=== PATIENT | female | born 1995 | race Caucasian/White ===

== ENCOUNTER → 2018-01-16 10:25 | Outpatient (CLI) | payer MEDICAID, SELFPAY ==
[2018-01-16 16:30] LABS: Chlamydia Trachomatis by PCR Negative (Negative); Neisserai gonorrhoeae by PCR Negative (Negative); Probe Check PASS; Sample Adequacy Control PASS; Specimen Processing Control PASS
== END ==
PROVIDERS: Visit Provider Obstetrics & Gynecology
DX: Z11.3 Encounter for screening for infections with a predominantly sexual mode of transmission (principal)
CPT/HCPCS: 87491; 87591

== ENCOUNTER → 2018-01-18 14:10 | Outpatient (CLI) | payer MEDICAID, SELFPAY ==
--- NOTE | 2018-01-18 14:16 | US_ITS ---
STUDY: ULTRASOUND BREAST - LEFT REASON FOR EXAM: Female, 22 years old. Follow-up for left retroareolar lump. TECHNIQUE: Axial and longitudinal images of the LEFT breast were performed with a high resolution ultrasound transducer. COMPARISON: June 06, 2017. This exam demonstrated a probably benign lactocele measuring 1.1 cm in maximum dimension immediately adjacent to the left nipple. FINDINGS: LEFT Breast: There is no sonographically evident nodule, mass, cyst or fluid collection. Incidental note is made of multiple mildly dilated ducts. US/Breast Limited Unilateral IMPRESSION: No evident nodule, mass, cyst or fluid collection. Multiple mildly dilated ducts. ASSESSMENT CATEGORY: BIRADS Category 2: Benign. A letter regarding these results will be sent to the patient by the facility within 30 days. Electronically Signed: Marin Lew MD at 15:31 EDT , Service support ,
== END ==
PROVIDERS: Visit Provider Obstetrics & Gynecology
DX: N63.20 Unspecified lump in the left breast, unspecified quadrant (principal)
CPT/HCPCS: 76642

== ENCOUNTER → 2018-02-13 14:12 | Outpatient (CLI) | payer MEDICAID, SELFPAY ==
[2018-02-13 15:52] LABS: Color, Urine Yellow (Yellow); Glucose, Dipstick Normal (Normal); Ketone-Dipstick Negative (Negative); Leukocyte Esterase-Dipstick 100 /ul (Negative); Nitrite-Dipstick Negative (Negative); Occult Blood-Urine Negative /ul (Negative); Protein-Dipstick 15 mg/dl (Negative); Urine Bilirubin Dipstick Negative (Negative); Urine Clarity Cloudy (Clear); Urine Urobilinogen 4 mg/dl (Normal); Urine pH 6.5 (5.0 - 8.0)
[2018-02-13 16:19] LABS: Absolute Lymphocyte Count 1.52 X10^3/ul (0.83-4.51); Absolute Neutrophil Count 5.1 X10^3/uL (2.0-7.7); Basophil# 0.02 X10^3/uL; Basophil% 0.3 % (0-1); Eosinophil# 0.11 X10^3/uL; Eosinophils% 1.5 % (0-5); Hematocrit 36.5 % (37-47); Hemoglobin 12.7 g/dl (12.0-15.0); Lymphocyte # 1.52 X10^3/ul (4.0); Lymphocyte % 21.1 % (19-41); Mean Corp Hgb Conc 34.8 g/gl (32-36); Mean Corpuscular Volume 86.1 fL (81-99); Mean Platelet Vol. 11.3 fl (6.2-12.0); Monocyte# 0.43 X10^3/uL; Neutrophil # 5.12 X10^3/uL (2.7-7.7); Platelet Count 142 K/mm3 (150-450); RBC Distribution Width CV 12.9 % (11.6-14.6); RBC Distribution Width SD 39.8 fl (35.1-43.9); Red Blood Count 4.24 M/mm3 (4.2-5.4); White Blood Count 7.2 K/mm3 (4.4-11.0)
[2018-02-13 16:21] LABS: POSITIVE COUNT NO; POSITIVE DIFFERENTIAL NO; POSITIVE MORPHOLOGY NO
[2018-02-13 16:23] LABS: Thyroid Stim Hormone (TSH) 0.43 uIU/mL (0.358-3.74)
[2018-02-13 16:25] LABS: Amphetamine Urine VISTA NEGATIVE (<1000 ng/mL); Barbiturate Urine VISTA NEGATIVE (< 200 ng/mL); Benzodiazepine Urine VISTA NEGATIVE (< 200 ng/mL); Cocaine Urine VISTA NEGATIVE (< 300 ng/mL); Ecstacy Urine VISTA NEGATIVE (< 500 ng/mL); Methadone Urine VISTA NEGATIVE (< 300 ng/mL); PCP Urine VISTA NEGATIVE (< 25 ng/mL); THC Urine VISTA NEGATIVE (< 50 ng/mL); Vista UDS pH Range 6
[2018-02-13 17:07] LABS: HIV - WCH Non-Reactive (Nonreactive); Rubella IgG 23.4 IU/mL
[2018-02-15 10:17] LABS: HEPATITIS B SURFACE AG Negative (Negative); Hep C Antibodies <0.1 s/co ratio (0.0-0.9)
[2018-02-17 01:20] LABS: Prenatal RPR NONREACTIVE (NONREACTIVE)
== END ==
PROVIDERS: Visit Provider Obstetrics & Gynecology
DX: Z34.81 Encounter for supervision of other normal pregnancy, first trimester (principal)
CPT/HCPCS: 36415; 80307; 81002; 84443; 85025; 86703; 86762; 86803; 87340

== ENCOUNTER → 2018-03-13 17:08 | Outpatient (CLI) | payer MEDICAID, SELFPAY | PROVIDERS: Visit Provider Obstetrics & Gynecology | DX: N39.0 Urinary tract infection, site not specified (principal) | CPT/HCPCS: 87086; 87088 ==

== ENCOUNTER → 2018-05-22 15:55 | Outpatient (CLI) | payer MEDICAID, SELFPAY | PROVIDERS: Visit Provider Obstetrics & Gynecology | DX: K62.89 Other specified diseases of anus and rectum (principal); N89.8 Other specified noninflammatory disorders of vagina | CPT/HCPCS: 87070; 87075; 87077; 87205 ==

== ENCOUNTER → 2018-05-30 08:21 | Outpatient (CLI) | payer MEDICAID, SELFPAY ==
[2018-05-30 15:51] LABS: Hematocrit 33.3 % (37-47); Hemoglobin 11.1 g/dl (12.0-15.0); Mean Corp Hgb Conc 33.3 g/gl (32-36); Mean Corpuscular Hgb 30.4 pg (27.0-32.0); Mean Corpuscular Volume 91.2 fL (81-99); Mean Platelet Vol. 10.8 fl (6.2-12.0); Platelet Count 176 K/mm3 (150-450); RBC Distribution Width CV 12.7 % (11.6-14.6); RBC Distribution Width SD 42.3 fl (35.1-43.9); Red Blood Count 3.65 M/mm3 (4.2-5.4); Scan Indicated on CBC? Y/N NO; White Blood Count 9.5 K/mm3 (4.4-11.0)
[2018-05-30 16:01] LABS: Glucose Challenge Gest 1H 50g 97 mg/dL (70-140)
== END ==
PROVIDERS: Visit Provider Obstetrics & Gynecology
DX: Z34.83 Encounter for supervision of other normal pregnancy, third trimester (principal)
CPT/HCPCS: 36415; 82950; 85027

== ENCOUNTER → 2018-06-27 14:52 | Outpatient (CLI) | payer MEDICAID, SELFPAY ==
[2018-06-27 20:57] LABS: Chlamydia Trachomatis by PCR Negative (Negative); Neisserai gonorrhoeae by PCR Negative (Negative); Probe Check PASS; Sample Adequacy Control PASS; Specimen Processing Control PASS
== END ==
PROVIDERS: Visit Provider Obstetrics & Gynecology
DX: Z86.19 Personal history of other infectious and parasitic diseases (principal)
CPT/HCPCS: 87491; 87591

== ENCOUNTER → 2018-07-25 15:48 | Outpatient (CLI) | payer MEDICAID, SELFPAY ==
[2018-07-25 20:40] LABS: Group B Strep DNA By PCR Negative (Negative); Internal Control PASS; Probe Check PASS; Specimen Processing Control PASS
== END ==
PROVIDERS: Visit Provider Obstetrics & Gynecology
DX: Z36.85 Encounter for antenatal screening for Streptococcus B (principal)
CPT/HCPCS: 87081; 87653

== ENCOUNTER 2018-08-03 17:45 | Inpatient (IN) | payer MEDICAID, SELFPAY ==
[2018-08-03] MEDS: Lactated Ringers 1,000 ML 50 ML IV ×2 (18:00→19:30)
[2018-08-03 18:11] VITALS: BMI 27.1
[2018-08-03 18:36] LABS: Hematocrit 35.2 % (37-47); Hemoglobin 11.6 g/dl (12.0-15.0); Mean Corpuscular Hgb 28.8 pg (27.0-32.0); Mean Corpuscular Volume 87.3 fL (81-99); Mean Platelet Vol. 10.2 fl (6.2-12.0); Platelet Count 150 K/mm3 (150-450); RBC Distribution Width CV 12.6 % (11.6-14.6); RBC Distribution Width SD 40.4 fl (35.1-43.9); Red Blood Count 4.03 M/mm3 (4.2-5.4); White Blood Count 12.7 K/mm3 (4.4-11.0)
[2018-08-03] MEDS: Ondansetron 4 MG/2 ML Vial IV (18:48)
[2018-08-03 18:50] LABS: Scan Indicated on CBC? Y/N NO
[2018-08-03] MEDS: Oxytocin 30 units/NS 500 ml 30 UNITS/500 ML IV.SOLN 334 UNITS IV (20:16)
[2018-08-03] MEDS: Methylergonovine 0.2 MG/ML Ampul IM (20:18)
--- NOTE | 2018-08-03 20:26 | PCM.OB.VAG ---
- Problem List (1) 37 weeks gestation of Status: Acute (2) (spontaneous vaginal delivery) Status: Acute Vaginal Delivery Maternal Presentation: Active Labor Amniotic Membrane Rupture Type: Spontaneous Rupture of Membrane time: 08/03/20181999 Amniotic Fluid Description: Clear Final ROSA: 08/20/18 Final ROSA Source: US <20 weeks Gestational age: 37 Weeks and 4 Days Date of Procedure: 08/03/18 Pre-Operative Diagnosis: 37 4/7wga, labor Post-Operative Diagnosis: 37 4/7wga, labor Surgery/ Procedure Performed: Spontaneous Vaginal Delivery Anesthesiologist: Antonio Garcia Type of Anesthesia: Epidural Description of Procedure: Patient was FD/+4 station on my arrival. She pushed to deliver a vigorous male infant over an intact perineum. The infant was placed on the maternal abdomen and further attended by nursery personnel. The cord was doubly clamped and cut after it stopped pulsating. Cord blood specimen was obtained. The placenta delivered spontaneously and appeared intact on inspection. Perineum intact Sponge counts correct x 2. Presentation: Vertex Placental Delivery Description: Spontaneous Placenta Disposition: [facility] Cord Vessel Description: 3 Vessels Nuchal Cord Compression: Without compression Cord Entanglement: None Estimated Blood Loss: 200 ml Infant A gender: Male (1 minute): 8 (5 minute): 9 Episiotomy Description: None Laceration: None Medications given after delivery: IV Pitocin Complications: None
--- NOTE | 2018-08-03 20:34 | DCINST_ITS ---
Discharge Diet: No Restrictions Discharge Activity: Return to Normal Activity May resume sexual activity in: 6 weeks Lifting Restrictions: 20 lb Call your doctor if you observe: Fever of 101 or Higher, Inability to urinate, Inability to have a bowel movement, Using more than one pad per hour, Shortness of breath, Chest pain, Calf discomfort, Uncontrolled pain Additional Instructions: If you experience any of the following, contact your healthcare provider. * Bleeding that soaks a pad every hour for 2 hours * Fever 100.4 or higher * Unrelieved incision or abdominal pain * Swelling, redness, discharge or bleeding from your incision or episiotomy site * Your incision begins to separate * Problems urinating (including inability to urinate or burning while urinating). * Visual changes * Severe headache * Flu-like symptoms * Pain or redness in one of both of your breasts * Pain, warmth, tenderness or swelling in your legs, especially the calf area * Frequent nausea and vomiting * Symptoms of depression or anxiety If you experience any of the following, call 911 or go to the nearest Emergency Room. * Chest pain * Problems breathing * Seizure activity * Partial or complete paralysis of a body part, slurred speech, weakness or drooping of the face, or a sudden inability to walk or hold your balance Allergies/Adverse Reactions: Allergies No Known Allergies Allergy (Verified 12/05/15 10:12) Medications to take at Discharge Docusate Sodium [Colace] 100 mg PO BID PRN PRN #60 capsule 08/03/18 Ibuprofen 600 mg PO TID PRN #30 tablet 08/03/18 The following prescriptions were given: Docusate Sodium [Colace] 100 mg PO BID PRN PRN #60 capsule PRN Reason: Constipation Ibuprofen 600 mg PO TID PRN #30 tablet PRN Reason: Pain Please Follow Up With: Racheal Sloan MD When: 6 weeks Primary Care Physician: Care Physician,No Primary [Primary Care Provider] - Test Results: Test results from this visit will be discussed in further detail at your follow- up appointment, if applicable.
[2018-08-03] MEDS: Oxytocin 30 units/NS 500 ml 30 UNITS/500 ML IV.SOLN 167 UNITS IV (20:46)
[2018-08-03] MEDS: Ibuprofen 600 MG Tablet PO (21:50)
[2018-08-03] MEDS: 0.9% Saline Lock 10 ML Syringe IV (22:01)
[2018-08-03 22:22] VITALS: BP 118/71; PULSE 88; RESP 16; TEMP 36.9
[2018-08-04 00:28] VITALS: BP 112/44; PULSE 85; RESP 16; TEMP 36.8
--- NOTE | 2018-08-04 00:37 | NURSING ---
Late entry: at 2230, pt up to the bathroom with myself and Alana JAUREGUI. Pt tolerated activity well, unable to void. Pt performed phoenix care, then to wheelchair to be transported to room.
--- NOTE | 2018-08-04 00:39 | NURSING ---
Patient up to bathroom to try to void. Pt performed phoenix care; tolerated activity well. While in room, patient reported to this RN that boyfriend (Uche) went and got pt taco tapia to eat. Pt stated that she really wanted KF but he (indicating Uche) isn't really supposed to be driving, only for emergencies. Pt did not explain any further.
[2018-08-04 04:30] VITALS: BP 130/56; PULSE 93; RESP 16; TEMP 36.6; O2SAT 99
[2018-08-04 08:00] VITALS: BP 109/67; PULSE 80; RESP 16; TEMP 36.9
--- NOTE | 2018-08-04 08:46 | PCM.PN.OB ---
Patient Problems: Active and Suspected Problems 37 weeks gestation of (Acute) (spontaneous vaginal delivery) (Acute) Subjective: Patient without complaints. Minimal vaginal bleeding reported. Plans to bottlefeed. - Physical Exam Vital Signs Temp Pulse Resp BP Pulse Ox 97.8 F 93 16 130/56 H 99 08/04/18 04:30 08/04/18 04:30 08/04/18 04:30 08/04/18 04:30 08/04/18 04:30 Oxygen Delivery Method Room Air Weight: 134 lb 7.712 oz Body Mass Index (BMI) 27.1 Intake and Output for Last 24 Hours 08/02/18 08/03/18 08/04/18 23:59 23:59 23:59 Intake Total 1569 / 1569 Output Total 200 / 200 Balance 1369 / 1369 Laboratory Tests Past 24 Hrs 08/03/18 08/03/18 18:12 18:12 WBC 12.7 H RBC 4.03 L Hgb 11.6 L Hct 35.2 L MCV 87.3 MCH 28.8 MCHC 33.0 RDW 12.6 RDW Differential 40.4 Plt Count 150 MPV 10.2 Blood Type O POSITIVE Antibody Screen NEGATIVE Medical Necessity - Tobacco Use Smoking Status: Heavy Smoker (>10/day) Assessment/Plan All Active Problems 37 weeks gestation of (Acute) (spontaneous vaginal delivery) (Acute) Vacuum extractor delivery, delivered (Acute) Oligohydramnios (Acute) 39 weeks gestation of (Acute) Doing well day #1. Continuing present care.
[2018-08-04 12:00] VITALS: BP 110/68; PULSE 78; RESP 16; TEMP 36.3
[2018-08-04 16:00] VITALS: BP 114/74; PULSE 88; RESP 16; TEMP 36.4
[2018-08-04 20:15] VITALS: BP 109/58; PULSE 83; RESP 16; TEMP 36.3; O2SAT 98
[2018-08-05 01:40] VITALS: BP 108/52; PULSE 76; RESP 16; TEMP 36.5; O2SAT 97
[2018-08-05 08:00] VITALS: BP 112/68; PULSE 71; RESP 16; TEMP 36.3
--- NOTE | 2018-08-05 10:17 | PCM.PN.OB ---
Patient Problems: Active and Suspected Problems 37 weeks gestation of (Acute) (spontaneous vaginal delivery) (Acute) Subjective: Patient without complaints. Denies any problems. Minimal vaginal bleeding. - Physical Exam Vital Signs Temp Pulse Resp BP Pulse Ox 97.7 F L 76 16 108/52 L 97 08/05/18 01:40 08/05/18 01:40 08/05/18 01:40 08/05/18 01:40 08/05/18 01:40 Oxygen Delivery Method Room Air Weight: 134 lb 7.712 oz Body Mass Index (BMI) 27.1 Intake and Output for Last 24 Hours 08/03/18 08/04/18 08/05/18 23:59 23:59 23:59 Intake Total 1569 / 1569 Output Total 200 / 200 Balance 1369 / 1369 Medical Necessity - Tobacco Use Smoking Status: Heavy Smoker (>10/day) Assessment/Plan All Active Problems 37 weeks gestation of (Acute) (spontaneous vaginal delivery) (Acute) Vacuum extractor delivery, delivered (Acute) Oligohydramnios (Acute) 39 weeks gestation of (Acute) Doing well day #2 status post spontaneous vaginal delivery. Bottlefeeding. Will release to home with routine instructions.
[2018-08-05 11:35] VITALS: BP 112/68; PULSE 71; RESP 16; TEMP 36.3
--- NOTE | 2018-08-05 11:59 | NURSING ---
1135 [address]charged to car in wheelchair with baby in carseat. States she wants to go home today and feels like she is able to care for herself and her new baby. Refused flu vaccine.
--- NOTE | 2018-08-10 16:37 | NURSING ---
Spoke with Cynthia regarding her recovery from delivery. Patient states that she is doing well and she is bottle feeding and that is going well too. Encouraged her to let us know if she would have any further questions. Pete JAUREGUI
== END 2018-08-05 11:35 | disposition home or self-care (01) | DRG 560 ==
PROVIDERS: Admitting Provider Obstetrics & Gynecology; Visit Provider Obstetrics & Gynecology
DX: O42.02 Full-term premature rupture of membranes, onset of labor within 24 hours of rupture (principal); O99.334 Smoking (tobacco) complicating childbirth; F17.200 Nicotine dependence, unspecified, uncomplicated; Z3A.37 37 weeks gestation of pregnancy; Z37.0 Single live birth; Z87.59 Personal history of other complications of pregnancy, childbirth and the puerperium
CPT/HCPCS: 59025; 59050; 85027; 86850; 86900; 99218; J7120; A4216; G0378; J2405

== ENCOUNTER → 2018-11-09 16:57 | Outpatient (CLI) | payer MEDICAID, SELFPAY ==
[2018-11-09 19:34] LABS: Chlamydia Trachomatis by PCR Negative (Negative); Neisserai gonorrhoeae by PCR Negative (Negative); Probe Check PASS; Sample Adequacy Control PASS; Specimen Processing Control PASS
== END ==
PROVIDERS: Referring Provider Obstetrics & Gynecology; Visit Provider Obstetrics & Gynecology
DX: Z12.4 Encounter for screening for malignant neoplasm of cervix (principal); Z11.3 Encounter for screening for infections with a predominantly sexual mode of transmission
CPT/HCPCS: 87491; 87591; 88175; G0145

== ENCOUNTER → 2018-12-05 16:16 | Outpatient (CLI) | payer MEDICAID, SELFPAY ==
[2018-12-05 18:07] LABS: Color, Urine Straw (Yellow); Glucose, Dipstick Normal (Normal); Ketone-Dipstick Negative (Negative); Leukocyte Esterase-Dipstick 500 /ul (Negative); Nitrite-Dipstick Negative (Negative); Occult Blood-Urine 25 /ul (Negative); Protein-Dipstick 30 mg/dl (Negative); Specific Gravity, Urine 1.015 (1.002-1.030); Urine Bilirubin Dipstick Negative (Negative); Urine Clarity Cloudy (Clear); Urine Urobilinogen 1 mg/dl (Normal)
[2018-12-05 18:09] LABS: Absolute Lymphocyte Count 1.47 X10^3/ul (0.83-4.51); Absolute Neutrophil Count 3.3 X10^3/uL (2.0-7.7); Basophil# 0.02 X10^3/uL; Basophil% 0.4 % (0-1); Eosinophil# 0.13 X10^3/uL; Eosinophils% 2.5 % (0-5); Hematocrit 34.8 % (37-47); Hemoglobin 11.6 g/dl (12.0-15.0); Lymphocyte # 1.47 X10^3/ul (4.0); Lymphocyte % 28.4 % (19-41); Mean Corp Hgb Conc 33.3 g/gl (32-36); Mean Corpuscular Hgb 28.2 pg (27.0-32.0); Mean Corpuscular Volume 84.5 fL (81-99); Mean Platelet Vol. 10.3 fl (6.2-12.0); Monocyte# 0.29 X10^3/uL; Monocyte% 5.6 % (0-10); Neutrophil # 3.26 X10^3/uL (2.7-7.7); Neutrophil % 62.9 % (47-70); Platelet Count 158 K/mm3 (150-450); RBC Distribution Width CV 14.6 % (11.6-14.6); Red Blood Count 4.12 M/mm3 (4.2-5.4); White Blood Count 5.2 K/mm3 (4.4-11.0)
[2018-12-05 18:10] LABS: POSITIVE COUNT NO; POSITIVE DIFFERENTIAL NO; POSITIVE MORPHOLOGY NO
[2018-12-05 18:22] LABS: Amphetamine Urine VISTA NEGATIVE (<1000 ng/mL); Barbiturate Urine VISTA NEGATIVE (< 200 ng/mL); Benzodiazepine Urine VISTA NEGATIVE (< 200 ng/mL); Cocaine Urine VISTA NEGATIVE (< 300 ng/mL); Ecstacy Urine VISTA NEGATIVE (< 500 ng/mL); Methadone Urine VISTA NEGATIVE (< 300 ng/mL); PCP Urine VISTA NEGATIVE (< 25 ng/mL); THC Urine VISTA NEGATIVE (< 50 ng/mL); Vista UDS pH Range 7
[2018-12-05 18:30] LABS: Thyroid Stim Hormone (TSH) 1.99 uIU/mL (0.358-3.74)
[2018-12-05 19:11] LABS: HIV - WCH Non-Reactive (Nonreactive); Rubella IgG 14.9 IU/mL
[2018-12-07 20:20] LABS: Prenatal RPR NONREACTIVE (NONREACTIVE)
[2018-12-08 09:16] LABS: HEPATITIS B SURFACE AG Negative (Negative); Hep C Antibodies <0.1 s/co ratio (0.0-0.9)
== END ==
PROVIDERS: Visit Provider Obstetrics & Gynecology
DX: Z34.81 Encounter for supervision of other normal pregnancy, first trimester (principal)
CPT/HCPCS: 36415; 80307; 81002; 84443; 85025; 86703; 86762; 86803; 87340

== ENCOUNTER → 2019-04-02 15:11 | Outpatient (CLI) | payer MEDICAID, SELFPAY ==
[2019-04-02 16:26] LABS: Hematocrit 30.6 % (37-47); Hemoglobin 10.5 g/dl (12.0-15.0); Mean Corp Hgb Conc 34.3 g/gl (32-36); Mean Corpuscular Hgb 30.5 pg (27.0-32.0); Mean Platelet Vol. 10.3 fl (6.2-12.0); Platelet Count 144 K/mm3 (150-450); RBC Distribution Width CV 12.8 % (11.6-14.6); RBC Distribution Width SD 39.7 fl (35.1-43.9); Red Blood Count 3.44 M/mm3 (4.2-5.4); White Blood Count 9.8 K/mm3 (4.4-11.0)
[2019-04-02 16:28] LABS: Glucose Challenge Gest 1H 50g 91 mg/dL (70-140); Scan Indicated on CBC? Y/N NO
== END ==
PROVIDERS: Visit Provider Obstetrics & Gynecology
DX: Z34.82 Encounter for supervision of other normal pregnancy, second trimester (principal)
CPT/HCPCS: 36415; 82950; 85027

== ENCOUNTER 2019-05-03 16:40 | Outpatient (CLI) | payer MEDICAID, SELFPAY ==
[2019-05-03 17:35] LABS: Color, Urine Straw (Yellow); Glucose, Dipstick Normal (Normal); Ketone-Dipstick Negative (Negative); Leukocyte Esterase-Dipstick 500 /ul (Negative); Mucous, Urine 0 SEEN /hpf (<or=2+); Nitrite-Dipstick Negative (Negative); Occult Blood-Urine Negative /ul (Negative); Protein-Dipstick Negative (Negative); Red Blood Cells-Urine 0 SEEN /hpf (0-5); Urine Bilirubin Dipstick Negative (Negative); Urine Clarity Clear (Clear); Urine Urobilinogen Normal (Normal)
[2019-05-03 17:46] LABS: Squamous Epithelial Cells - UA 5-10 SEEN /hpf (5-10)
[2019-05-03 17:47] LABS: Bacteria 1+ /hpf (None Seen); White Blood Cells 5-10 SEEN /hpf (0-5)
[2019-05-03 17:59] VITALS: BMI 26.5
[2019-05-03] MEDS: Acetaminophen 500 MG Tablet PO (18:04)
--- NOTE | 2019-05-04 08:49 | OB.TRI.HP_ITS ---
History of Present Illness Date of Service: 05/03/19 Was patient seen by the physician?: Yes Reason For Visit: ABDOMINAL & BACK PAIN Date of Service: 05/03/19 Final ROSA: 06/28/19 Final ROSA Source: US <20 weeks Gestational age: 32 Weeks and 0 Days History of Present Illness: 23 yo female at 32 wk EGA presents with CC of pain at R back, flank, and RLQ pain denies any UTI sx. +FM and feeling some cramping. Hx of two prior term vaginal deliveries. (37 wk, 39 wks) Allergies No Known Allergies Allergy (Verified 12/05/15 10:12) Laboratory Studies: Laboratory Tests 05/03/19 Range/Units 17:00 Urine Color Straw (Yellow) Urine Clarity Clear (Clear) Urine pH 8.0 (5.0 - 8.0) Ur Specific [place] 1.010 (1.002-1.030) Urine Protein Negative (Negative) mg/dl Urine Glucose (UA) Normal (Normal) mg/dl Urine Ketones Negative (Negative) mg/dl Urine Occult Blood Negative (Negative) /ul Urine Nitrite Negative (Negative) Urine Bilirubin Negative (Negative) mg/dL Urine Urobilinogen Normal (Normal) mg/dl Ur Leukocyte Esterase 500 H (Negative) /ul Urine RBC 0 SEEN (0-5) /hpf Urine WBC 5-10 SEEN (0-5) /hpf Ur Squamous Epith Cells 5-10 SEEN (5-10) /hpf Urine Bacteria 1+ (None Seen) /hpf Urine Mucus 0 SEEN (<or=2+) /hpf Physical Exam General: Alert, Oriented x3, Cooperative, No apparent distress HEENT: Atraumatic, EOMI Abdomen: Soft, Non Tender, Gravid Extremities:: No edema ASSISTANT NEWS DIRECTOR: Normal external genitalia Presentation: Cephalic Cervix Dilation (cm): 1 - firm Station: -3 Effacement (%): 25 NST - FHR Rate Baby A Baseline: 140-150s accels Variability:: Minimal Accelerations:: 10 x 10 Decelerations:: None NST Reactive:: Yes, Appropriate for gestational age FHR Category:: Category I Uterine Activity:: no UCs noted. Impression/Plan 32 wk Abdmijnal pain, R flank, R back pain. Cramping False labor UTI - UA with leukocyte esterase. pH 8.0 1+ bacteria. Sp Gr 1.010 Neg blood RX Macrobid Home to rest Keep next ofc appt.
== END 2019-05-03 18:15 | disposition home or self-care (01) ==
LOC: WPOUT 16:49 → WP 16:50
PROVIDERS: Referring Provider Obstetrics & Gynecology; Visit Provider Obstetrics & Gynecology
DX: O47.03 False labor before 37 completed weeks of gestation, third trimester (principal); O23.43 Unspecified infection of urinary tract in pregnancy, third trimester; B96.89 Other specified bacterial agents as the cause of diseases classified elsewhere; Z3A.32 32 weeks gestation of pregnancy
CPT/HCPCS: 59025; 59050; 81001; 99218; G0378

== ENCOUNTER → 2019-06-05 16:48 | Outpatient (CLI) | payer MEDICAID, SELFPAY | PROVIDERS: Visit Provider Obstetrics & Gynecology | DX: Z34.83 Encounter for supervision of other normal pregnancy, third trimester (principal); Z36.85 Encounter for antenatal screening for Streptococcus B | CPT/HCPCS: 87081 ==

== ENCOUNTER 2019-06-16 20:51 | Inpatient (IN) | payer MEDICAID, SELFPAY ==
[2019-06-16 21:12] VITALS: BMI 26.6
[2019-06-16] MEDS: 0.9% Saline Lock 10 ML Syringe IV (21:27)
[2019-06-16] MEDS: Lactated Ringers 1,000 ML 50 ML IV (21:52)
--- NOTE | 2019-06-16 21:56 | PCM.HP.BLA ---
History and Physical Date of Admission: 06/16/19 Date: 06/16/2019 Name: DORIAN THOMAS Age: 23 Date of : 1995 ROSA CONFIRMATION: LMP: 09/14/18 Initial ROSA Date: Ultrasound Exam: Initial Exam: 06/28/19 Final ROSA: 06/28/19 HISTORY OF PRESENT ILLNESS: On 06/16/2019 Dorian Thomas, a 23 year old female , presented for: Contractions Patient states she has been jeanine since about 1830 this evening; she reports active FM, denies VB or LOF; she does smoke, having smoked her last cigarette just prior to arrival on L&D; this has been remarkable for IUGR and anemia. She has been receiving growth ultrasounds and biweekly NSTs. Most recent Ultrasound on 06/08/19 showed BPP 8/8, normal amniotic fluid, and size less than 10th percentile. NST was reactive. Patient has declined to take iron supplementation or PNV as prescribed. She also declined TDAP immunization. She is GBS negative. ALLERGIES: No Known Drug Allergies MEDICATIONS HISTORY: Current medications prescribed by our practice are: PNV, [id number], 1 PO QD Ferrous Sulfate, 325 mg (65mg Iron), 1 PO QD Colace, 100mg, 1 PO BID PRN constipation Miralax, 17gm powder packet, 17gm PO QD REVIEW OF SYSTEMS: GENERAL - Denies fever, or chills SKIN - Denies skin changes EYES - Denies visual changes EARS - Denies difficulty hearing NOSE - Denies nasal congestion or bleeding MOUTH - Denies sore throat or difficulty swallowing NECK - Denies pain or swelling RESPIRATORY - Denies shortness of breath or wheezing CARDIOVASCULAR - Denies palpitations or chest pain GASTROINTESTINAL - Denies nausea, vomiting, diarrhea, constipation GENITOURINARY - Denies dysuria, frequency of urination, incontinence of urine MUSCULOSKELETAL - Denies joint or muscle pain NEUROLOGICAL - Denies localized numbness or weakness PSYCHIATRIC - Denies depression or anxiety ENDOCRINE - Denies heat or cold intolerance, weight loss or gain HEMATO-IMMUNOLOGIC - Denies excesive bleeding with cuts PAST HISTORY: Breast/Ovarian/Colon Cancers - Paternal Grandmother had Breast Cancer Infections - Chicken pox and as child Illnesses - none Accidents - no injuries of consequence History of Abnormal PAPS - Denies Hospitalizations - Childbirth SURGICAL HISTORY: 1. [place] Teeth Removal MENSTRUAL HISTORY: LMP Known?- Definite, LMP - 09/14/18, Age Onset Menarche - 14 PAST PREGNANCIES: Total Pregnancies - 3; Full Term Pregnancies - 2; Premature - 0; Abortions, Induced - 0; Abortions, Spontaneous - 0; Ectopics - 0; Multiple Births - 0; Living Children - 2 FAMILY HISTORY: Maternal Grandparent - Carcinoma of breast; SOCIAL HISTORY: Alcohol Use - denies drinking Smoking - 6 cigs per day Diet - no special diet Lifestyle - moderate stress lifestyle and single Exercise - minimal Seat Belt Use - never Job Description - unemp Illicit Drug Use - denies use of street drugs Sexual Activity - ACTIVE [employer] Residence - Lives with [facility] Place of - [place], [place] Spouse-Sig Other Name - Uche Walsh Spouse-Sig Other Occupation - fire pot operator Spouse-Sig Other Phone No - [phone] Children Name(s) - Gopal Hinojosa Control - PHYSICAL EXAMINATION AVSS CONSTITUTIONAL - NAD, well nourished, and well developed SKIN - No rash, lesions, or ulcers HEENT - Normocephalic, PERRLA, EOMI NECK - No nodes, no nuchal rigidity and thyroid normal size and texture LYMPH NODES - Palpation of lymph nodes in neck and groins within normal limits LUNGS - CTA x2 without wheezes, crackles or rales CARDIAC - Regular rate and rhythm without rubs, murmurs, or gallops BREAST - declined ABDOMEN - Without hepatosplenomegaly, distention, masses, rebound, or guarding; normal bowel sounds; no hernias EXTREMITIES - No edema or calf tenderness NEUROLOGICAL - Cranial nerves II-XII grossly intact PSYCHIATRIC - A and O to time, place, person, mood and affect DETAILED PELVIC EXAM External Genital - non-tender without lesions Urethra/Urethral Meatus - non-tender Bladder - non-tender Vagina - vaginal [place] are pink and moist without loss of rugae and no evidence of atropy Cervix - 4.5/80/-2, soft, posterior, BBW per RN Uterus - Gravid FHTs: 145 baseline with moderate variability and accels Conractions: Q 2-5 minutes palpating moderate to firm ASSESSMENT: 1. Active labor 2. GBS negative 3. IUGR 4. Anemia 5. Category 1FHTs PLAN: 1. Admit to inpatient 2. Notify pediatrics for delivery 4. Epidural upon request 5. Expectant management
[2019-06-16 22:02] LABS: Absolute Lymphocyte Count 2.51 X10^3/uL (0.83-4.51); Absolute Neutrophil Count 10.1 X10^3/uL (2.0-7.7); Basophil# 0.05 X10^3/uL; Basophil% 0.4 % (0-1); Eosinophil# 0.17 X10^3/uL; Eosinophils% 1.2 % (0-5); Hematocrit 32.6 % (37-47); Lymphocyte # 2.51 X10^3/ul (4.0); Lymphocyte % 18.2 % (19-41); Mean Corp Hgb Conc 33.7 g/dL (32-36); Mean Corpuscular Hgb 30.3 pg (27.0-32.0); Mean Corpuscular Volume 89.8 fL (81-99); Mean Platelet Vol. 10.4 fl (6.2-12.0); Monocyte# 0.91 X10^3/uL; Monocyte% 6.6 % (0-10); NRBC Flagged by Analyzer 0 % (0-5); Neutrophil # 10.12 X10^3/uL (2.7-7.7); Neutrophil % 73.2 % (47-70); Platelet Count 198 K/mm3 (150-450); RBC Distribution Width CV 12.7 % (11.6-14.6); RBC Distribution Width SD 41.4 fl (35.1-43.9); Red Blood Count 3.63 M/mm3 (4.2-5.4); White Blood Count 13.8 K/mm3 (4.4-11.0)
[2019-06-16] MEDS: Oxytocin 30 units/NS 500 ml 30 UNITS/500 ML IV.SOLN 334 UNITS IV (23:11)
--- NOTE | 2019-06-16 23:38 | PCM.OPRPT ---
Report of Operation Date of Procedure: 06/16/19 Vaginal Delivery Maternal Presentation: Active Labor Amniotic Membrane Rupture Type: Artificial Amniotic Fluid Description: Clear Final ROSA: 06/28/19 Final ROSA Source: US <20 weeks Gestational age: 38 Weeks and 3 Days Fate doctor who attended delivery (if requested by OB): Rebekah Brown Date of Procedure: 06/16/19 Pre-Operative Diagnosis: IUP @ 38 weeks 2 days, IUGR, Anemia Surgery/ Procedure Performed: Spontaneous Vaginal Delivery Type of Anesthesia: - - Nitrous Oxide Description of Procedure: Progressed rapidly to anterior lip, AROM for clear fluid, progressed immediately to c/c/+1. Pushed effectively and delivered a vigorous female OA to AVELINA; shoulders followed easily with maternal effort; infant placed on mother's abdomen, dried, stimulated, mouth and nares bulb suctioned, cord clamped x 2 and cut by FOB; infant then handed of to waiting wire drawing machine tender; APGARS 8/9. Placenta delivered spontaneously, Zayra mechanism, intact, thin 3-vessel cord, central insertion; scattered small calcifications noted, sent to pathology; Cord blood collected for typing; perineum was intact; EBL 200 Instrument and Raytec count correct with RN X 2 Presentation: Vertex, AVELINA Placental Delivery Description: Spontaneous Placenta Disposition: Sent to Pathology Cord Vessel Description: 3 Vessels Cord Entanglement: None Estimated Blood Loss: 200 Infant A gender: Female (1 minute): 8 (5 minute): 9 Episiotomy Description: None Laceration: None Medications given after delivery: IV Pitocin
--- NOTE | 2019-06-16 23:55 | DCINST_ITS ---
Discharge Diet: No Restrictions Discharge Activity: Return to Normal Activity, May Shower, May Take a Tub Bath May resume sexual activity in: 4-6 weeks Additional Activity Instructions:: Nothing in the vagina for 4-6 weeks. You may return to work/school in 6 weeks. Call your doctor if your incision/area has: Continuous Slow Oozing, Sudden Increased Bleeding, Increased Pain/ Swelling, Foul Smelling Discharge Call your doctor if you observe: Fever of 101 or Higher, Inability to urinate, Inability to have a bowel movement, Using more than one pad per hour, Shortness of breath, Dizziness, Fainting spells, Chest pain, Increased palpitations (irregular heartbeat), Calf discomfort, Uncontrolled pain Additional Instructions: If you experience any of the following, contact your healthcare provider. * Bleeding that soaks a pad every hour for 2 hours * Fever 100.4 or higher * Unrelieved incision or abdominal pain * Swelling, redness, discharge or bleeding from your incision or episiotomy site * Your incision begins to separate * Problems urinating (including inability to urinate or burning while urinating). * Visual changes * Severe headache * Flu-like symptoms * Pain or redness in one of both of your breasts * Pain, warmth, tenderness or swelling in your legs, especially the calf area * Frequent nausea and vomiting * Symptoms of depression or anxiety If you experience any of the following, call 911 or go to the nearest Emergency Room. * Chest pain * Problems breathing * Seizure activity * Partial or complete paralysis of a body part, slurred speech, weakness or drooping of the face, or a sudden inability to walk or hold your balance Allergies/Adverse Reactions: Allergies No Known Allergies Allergy (Verified 12/05/15 10:12) Please Follow Up With: Racheal Sloan MD When: 6 weeks Primary Care Physician: Care Physician,No Primary [Primary Care Provider] - Test Results: Test results from this visit will be discussed in further detail at your follow- up appointment, if applicable. Proposed Discharge Date: 06/18/19
--- NOTE | 2019-06-17 00:30 | PCM.PN.OB ---
Subjective: Late entry for 06/16/2019 2215 Uncomfortable, declines epidural, using Nitrous Oxide Objective: AVSS FHTs: 145 baseline, moderate variability with accels, no decels UCs: Q 2-4 minutes VE per RN 5/80/-2, soft, anterior, BBOW - Physical Exam General: Alert, Oriented x3, Cooperative Psych/Mental Status: Normal Affect, Appropriate Weight: 132 lb Body Mass Index (BMI) 26.6 Intake and Output for Last 24 Hours 06/15/19 06/16/19 06/17/19 23:59 23:59 23:59 Intake Total 65 65 Balance Laboratory Tests Past 24 Hrs 06/16/19 06/16/19 21:27 21:27 WBC 13.8 H RBC 3.63 L Hgb 11.0 L Hct 32.6 L MCV 89.8 MCH 30.3 MCHC 33.7 RDW Std Deviation 41.4 RDW Coeff of Neel 12.7 Plt Count 198 MPV 10.4 Immature Gran % (Auto) 0.400 Neut % (Auto) 73.2 H Lymph % (Auto) 18.2 L [place] % (Auto) 6.6 Eos % (Auto) 1.2 Baso % (Auto) 0.4 Absolute Neuts (auto) 10.1 H Absolute Lymphs (auto) 2.51 Nucleated RBC % 0 Blood Type O POSITIVE Antibody Screen NEGATIVE Medical Necessity - Tobacco Use Smoking Status: Current every day smoker Assessment/Plan All Active Problems (spontaneous vaginal delivery) (Acute) 39 weeks gestation of (Acute) Assessment: Active labor GBS negative IUGR Anemia Category 1FHTs Plan: Expectant management
[2019-06-17] MEDS: Acetaminophen 500 MG Tablet 1000 MG PO ×2 (00:37→17:57)
--- NOTE | 2019-06-17 00:56 | PCM.PN.OB ---
Subjective: Late Entry for 06/16/2019 2249 Uncomfortable, feeling pressure, wants to push Objective: AVSS FHTs: 135 baseline with moderate variability, Q accels, no decels UCs: Q 2-3 minutes VE: 8cm per RN - Physical Exam General: Alert, Oriented x3, Cooperative Weight: 132 lb Body Mass Index (BMI) 26.6 Intake and Output for Last 24 Hours 06/15/19 06/16/19 06/17/19 23:59 23:59 23:59 Intake Total 65 / 65 Balance 65 / Laboratory Tests Past 24 Hrs 06/16/19 06/16/19 21:27 21:27 WBC 13.8 H RBC 3.63 L Hgb 11.0 L Hct 32.6 L MCV 89.8 MCH 30.3 MCHC 33.7 RDW Std Deviation 41.4 RDW Coeff of Neel 12.7 Plt Count 198 MPV 10.4 Immature Gran % (Auto) 0.400 Neut % (Auto) 73.2 H Lymph % (Auto) 18.2 L [place] % (Auto) 6.6 Eos % (Auto) 1.2 Baso % (Auto) 0.4 Absolute Neuts (auto) 10.1 H Absolute Lymphs (auto) 2.51 Nucleated RBC % 0 Blood Type O POSITIVE Antibody Screen NEGATIVE Medical Necessity - Tobacco Use Smoking Status: Current every day smoker Assessment/Plan All Active Problems (spontaneous vaginal delivery) (Acute) 39 weeks gestation of (Acute) Assessment: Transition labor GBS negative IUGR Anemia Category 1 FHTs Plan: AROM Anticipate vaginal delivery
[2019-06-17 03:40] VITALS: BP 128/69; PULSE 81; RESP 17; TEMP 36.8
--- NOTE | 2019-06-17 04:13 | PLAC_PTH ---
PATIENT: DORIAN OLIVAREZ LOC: [facility] U#:[id number] AGE/SX: ROOM: WP009 RE06/16/[address]: Dr. Racheal Sloan MD : 1995 BED: 1 DIS: 06/18/2019 SPEC #: [id number] RECD: 06/17/19 04:13 STATUS: PREMA REAdelaida #: [id number] BASIM: 06/17/19 04:[address]: Racheal Sloan DEPT: SURGICAL PATHOLOGY RECD BY: Wang Westfall ENTERED: 06/18/19 12:07 SP TYPE: PLACENTA OTHR DR: No Primary Care Phys Tissues: Placenta, NOS Procedures: Surgery Specimen Level V HEADER OPERATION: Vaginal delivery PRE-OP DIAGNOSIS: IUGR, anemia TISSUE SUBMITTED: Placenta MICROSCOPIC DIAGNOSIS Barker placenta (435 gm): Umbilical cord - trivascular with no inflammation. Placental membranes - no pathologic change. Placental disc - intervillous congestion and mildly increased intraparenchymal microcalcifications. AM:cheko 06/19/19 MICROSCOPIC DESCRIPTION Slides are reviewed. GROSS DESCRIPTION SPECIMEN: PLACENTA / CLINICAL INFORMATION: A. Weight: 2.828 kg B. Gestational Age: 38 weeks C. Sex: Female PLACENTAL WEIGHT (POST FIXATION): 435 gm PLACENTAL DIMENSIONS: 15 x 14.5 x 3 cm PLACENTAL SHAPE: Usual ovoid PLACENTAL WEIGHT FOR GESTATIONAL AGE: Within 10-99th percentile MEMBRANES - Present A. Insertion: Marginal B. Site of rupture from edge: 2 cm from edge of placental disc C. Color of membrane: Barlow-mcdaniel D. Abnormalities: None UMBILICAL CORD - Present A. Color: Barlow-mcdaniel B. Insertion: Eccentric C. Length: 35 cm D. Diameter: 1 cm E. Number of vessels: Three F. Abnormalities: None PLACENTAL DISC - Present A. Color of surface: Barlow-mcdaniel B. surface abnormalities: None C. Maternal cotyledons: Intact with minimal tears D. Attached retro placental clot: No clot E. Cut surface: Dark red and spongy F. Lesions: None G. Separate clot: Absent SECTIONS SUBMITTED: 1. Umbilical cord ( end inked) 2. Membrane roll 3. Placental disc, and maternal surfaces 4. Placental disc, and maternal surfaces 5. Placental disc, and maternal surfaces AM:cheko 06/18/19 TC:5 CPT: 19725
[2019-06-17 06:16] LABS: Hematocrit 31.4 % (37-47); Hemoglobin 10.2 g/dL (12.0-15.0); Mean Corp Hgb Conc 32.5 g/dL (32-36); Mean Corpuscular Hgb 29.6 pg (27.0-32.0); Mean Platelet Vol. 10.5 fl (6.2-12.0); Platelet Count 185 K/mm3 (150-450); RBC Distribution Width CV 12.9 % (11.6-14.6); RBC Distribution Width SD 42.5 fl (35.1-43.9); Red Blood Count 3.45 M/mm3 (4.2-5.4); White Blood Count 18.6 K/mm3 (4.4-11.0)
--- NOTE | 2019-06-17 07:18 | PN.OBGYN_ITS ---
Subjective: Feeling well, tolerating diet, passing flatus; denies pain or perineal discomfort; bottle feeding, infant doing well; wants to be discharged at 24 h ours despite encouragement to stay until next day; undecided on contraceptive method at this time Objective: AVSS Fundus u/4, firm, midline, lochia small - Physical Exam General: Alert, Oriented x3, Cooperative, No apparent distress HEENT: PERRLA, EOMI Oral: Moist Mucosa Neck: Supple Lungs: Clear to auscultation, Normal air movement Cardiovascular: Regular rate, Regular Rhythm Abdomen: Bowel Sounds Present, Soft, Non Tender, Passing Flatus Extremities: No edema, No Calf Tenderness Musculoskeletal: No Tenderness to Palpation of Joints or Extremities Neurological: Cranial nerves II-XII grossly intact, Deep Tendon Reflexes 2+/4 and Symmetrical Vital Signs Temp Pulse Resp BP 98.3 F 81 17 128/69 H 06/17/19 03:40 06/17/19 03:40 06/17/19 03:40 06/17/19 03:40 Oxygen Delivery Method Room Air Weight: 132 lb Body Mass Index (BMI) 26.6 Intake and Output for Last 24 Hours 06/15/19 06/16/19 06/17/19 23:59 23:59 23:59 Intake Total 232 / 232 333.00 / 333.00 Output Total 150 / 150 Balance 232 / 232 183.00 / 183.00 Laboratory Tests Past 24 Hrs 06/16/19 06/16/19 06/17/19 21:27 21:27 05:45 WBC 13.8 H 18.6 H RBC 3.63 L 3.45 L Hgb 11.0 L 10.2 L Hct 32.6 L 31.4 L MCV 89.8 91.0 MCH 30.3 29.6 MCHC 33.7 32.5 RDW Std Deviation 41.4 42.5 RDW Coeff of Neel 12.7 12.9 Plt Count 198 185 MPV 10.4 10.5 Immature Gran % (Auto) 0.400 Neut % (Auto) 73.2 H Lymph % (Auto) 18.2 L [place] % (Auto) 6.6 Eos % (Auto) 1.2 Baso % (Auto) 0.4 Absolute Neuts (auto) 10.1 H Absolute Lymphs (auto) 2.51 Nucleated RBC % 0 Blood Type O POSITIVE Antibody Screen NEGATIVE Medical Necessity - Tobacco Use Smoking Status: Current every day smoker Assessment/Plan All Active Problems (spontaneous vaginal delivery) (Acute) 39 weeks gestation of (Acute) Assessment: DOD, normal involution, normal course Anemia Plan: Remove Saline lock Continue routine care Encourage staying through PP Day #1 Discharge instructions discussed May DC home at 24 hours if stable Follow up in office in 6 weeks; call if any questions or concerns
[2019-06-17 08:00] VITALS: BP 122/77; PULSE 69; RESP 15; TEMP 36.4
[2019-06-17] MEDS: Ibuprofen 400 MG Tablet PO (11:15)
[2019-06-17 12:00] VITALS: BP 120/72; PULSE 77; RESP 14; TEMP 36.4
--- NOTE | 2019-06-17 14:49 | NURSING ---
Concerns regarding mother and father's lack of care for infant. The mother has not been able to successfully feed the infant a bottle per this shift. Pt states she can't get the baby to wake up to feed. She also needs reminded every 4 hours to feed the infant.This nurse has been able to wake to feed, although the baby has been a slow feeder. Infant has had a soild diaper each round which the parents have needed prompted to change the diaper. Parents have been encouraged to be involved in baby care. This nurse found the infant on multiple occasions in wet clothes and blankets from formula. In report this morning it was noted from the cnc machinist 2nd shift nurse that there were 2 bed bugs on pt's wheelchair.
[2019-06-17 15:11] VITALS: BP 125/72; PULSE 70; RESP 16; TEMP 36.7
[2019-06-17 20:30] VITALS: BP 142/64; PULSE 78; RESP 18; TEMP 36.4
[2019-06-18 02:00] VITALS: BP 131/63; PULSE 75; RESP 18; TEMP 36.3
[2019-06-18] MEDS: Ibuprofen 400 MG Tablet PO ×2 (02:17→13:32)
--- NOTE | 2019-06-18 09:07 | PCM.PN.OB ---
Subjective: Feeling well, denies pain, tolerating diet well, has had bowel movement, infant bottle feeding well Objective: AVSS Fundus firm, midline, u/4, lochia small - Physical Exam General: Alert, Oriented x3, Cooperative, No apparent distress HEENT: PERRLA, EOMI Oral: Moist Mucosa Neck: Supple Lungs: Clear to auscultation, Normal air movement Cardiovascular: Regular rate, Regular Rhythm Abdomen: Bowel Sounds Present, Soft, Non Tender, Non-Distended, Passing Flatus Extremities: No edema, Capillary Refill Less than 3 Seconds Skin: No rashes, No breakdown Musculoskeletal: No Tenderness to Palpation of Joints or Extremities Neurological: Cranial nerves II-XII grossly intact, Deep Tendon Reflexes 2+/4 and Symmetrical Psych/Mental Status: Normal Affect, Appropriate, Alert and oriented to time, place, person, mood and affect Vital Signs Temp Pulse Resp BP 97.3 F L 75 18 131/63 H 06/18/19 02:00 06/18/19 02:00 06/18/19 02:00 06/18/19 02:00 Oxygen Delivery Method Room Air Weight: 132 lb Body Mass Index (BMI) 26.6 Intake and Output for Last 24 Hours 06/16/19 06/17/19 06/18/19 23:59 23:59 23:59 Intake Total 232 / 232 393.00 / 393.00 Output Total 350 / 350 Balance 232 / 232 43.00 / 43.00 Medical Necessity - Tobacco Use Smoking Status: Current every day smoker Assessment/Plan All Active Problems (spontaneous vaginal delivery) (Acute) 39 weeks gestation of (Acute) Assessment: G3 now P3, PP Day #2, normal involution, normal course Anemia, asymptomatic Plan: Discharge instructions discussed Patient undecided regarding contraception Discharge home when is discharged by pediatrics Follow up in office in 6 weeks
[2019-06-18 09:30] VITALS: BP 117/80; RESP 14; TEMP 37
[2019-06-18 13:34] VITALS: BP 135/86; PULSE 72; RESP 16; TEMP 36.5
[2019-06-19 14:23] LABS: Pathology Specimen OB SEE PATHOLOGY REPORT
== END 2019-06-18 15:45 | disposition home or self-care (01) | DRG 560 ==
PROVIDERS: Advanced Practice Midwife; Admitting Provider Obstetrics & Gynecology; Referring Provider Obstetrics & Gynecology; Visit Provider Obstetrics & Gynecology
DX: O36.5930 Maternal care for other known or suspected poor fetal growth, third trimester, not applicable or unspecified (principal); O99.02 Anemia complicating childbirth; D64.9 Anemia, unspecified; O99.334 Smoking (tobacco) complicating childbirth; F17.210 Nicotine dependence, cigarettes, uncomplicated; Z3A.38 38 weeks gestation of pregnancy; Z37.0 Single live birth
CPT/HCPCS: 59025; 59050; 85025; 85027; 86850; 86900; 86901; 88307; 99218; J7120; A4216; G0378

== ENCOUNTER 2020-05-09 09:51 | Emergency (ER) | payer MEDICAID, SELFPAY ==
[2020-05-09 09:53] VITALS: BP 128/80; PULSE 115; RESP 17; TEMP 36.6; O2SAT 100; BMI 22.9
--- NOTE | 2020-05-09 10:07 | ED.DCSUM_ITS ---
History of Present Illness Chief Complaint: Other, Pain/Inj Informant: Patient Onset: Yesterday Context: Gradual Onset Timing: Continuous Quality: Throbbing Location: Rectal Current Severity: Severe Maximum Severity: Severe Worsened by: Movement Relieved by: Nothing Associated Symptoms: Denies Narrative: 24-year-old female presents to the emergency department with rectal pain. She does have a history of hemorrhoids. She is concerned this may be a hemorrhoid versus an abscess. Denies history of abscess. She has not had drainage or bleeding. No fevers. Denies constipation. Denies abdominal pain. Denies nausea or vomiting. Prior similar symptoms: No Recent Illness/Hospitalization: No Past Medical History - Allergies and Home Meds Allergies/Adverse Reactions: Allergies No Known Allergies Allergy (Verified 05/09/20 09:52) Primary Care Physician: Ronni Reynolds MD [STAFF PHYSICIAN] - 3-5 Days if not improving Prior records reviewed: Yes Past Medical History: None Surgical History: no surgical history Lives: With Family Smoking Status: Current every day smoker Alcohol: Occasional Drugs: None Review of Systems All systems negative except as indicated General: Denies: Chills, Fever, Sweats Eyes: Denies: Visual changes - bilaterally, Diplopia ENT: Denies: Rhinorrhea, Sore throat Cardiovascular: Denies: Chest pain, Palpitations Respiratory: Denies: Dyspnea, Cough, Dyspnea on exertion Gastrointestinal: Denies: Abdominal pain, Nausea, Vomiting, Diarrhea, Melena, Hematochezia Genitourinary: Denies: Dysuria, Hematuria, Frequency Musculoskeletal: Denies: Back pain, Extremity Pain Skin: Reports: Abscess. Denies: Rash, Abrasions, Wounds Neurological: Denies: Headache, Weakness, Numbness Physical Exam Vital Signs/Narrative: Vital Signs Temp Pulse Resp BP Pulse Ox 05/09/20 09:53 97.8 F 115 H 17 128/80 H 100 Inital Vital Signs reviewed: Yes General: Well nourished, Well developed, No Acute Distress Head: Normocephalic, Atraumatic Eyes: Perrl, EOMI ENT: Moist mucous membranes, No rhinorrhea Neck: Supple, Nontender Cardiovascular: Regular rate, Regular rhythm, No murmurs Respiratory: No distress, CTA bilaterally, Chest nontender Abdomen: Soft, Nontender, Nondistended, Normal bowel sounds Rectal: - - Perianal abscess indurated and fluctuant no surrounding cellulitis no involvement of the rectum no bleeding or drainage noted Back: Nontender, Normal Inspection Extremities: Nontender, No edema Skin: Normal color, No rash Neurological: Alert, Oriented x3, Cranial nerves II-XII grossly intact, Normal Strength, Normal Sensation Psychological: Normal affect, Normal Mood Diagnostic/Tx/Re-eval - Medical Decision Making Patient has a perianal abscess. Under sterile conditions with chlorhexidine prep lidocaine with epinephrine was used locally for anesthesia for field block. The wound was then cleansed again with chlorhexidine. Single straight incision made with a #11 blade scalpel. Copious purulent drainage was expressed. Wound deloculated. Wound irrigated. Packing was placed. Dressing applied. We will place the patient on Bactrim and Keflex. She was referred to general surgery for follow-up. Discussed proper wound care and gave her worsening signs of infection to monitor for and will be discharged home ED Disposition - Plan for ED Patient: Disposition: Home or Assisted Living Diagnosis: Perianal abscess Instructions: ED ABSCESS Jaja-Anal IandD Prescriptions: Smz/Tmp Ds [Bactrim Ds] 1 tab PO BID #14 tab Prescription Printed Cephalexin [Keflex] 500 mg PO Q12 #14 cap Prescription Printed Naproxen [Naprosyn] 500 mg PO BID #14 tab Prescription Printed Hydrocodone Bitart/Apap 5-325 [[place] 5MG-325MG] 1 tab PO Q6H PRN PRN 3 Days #10 tab PRN Reason: Pain Prescription Printed Referrals: Ronni Reynolds MD [STAFF PHYSICIAN] - 3-5 Days if not improving
== END 2020-05-09 10:51 | disposition home or self-care (01) ==
LOC: ED 10:42
PROVIDERS: Emergency Provider Physician Assistant Medical
DX: K61.0 Anal abscess (principal); F17.200 Nicotine dependence, unspecified, uncomplicated
CPT/HCPCS: 99283

== ENCOUNTER → 2020-07-01 | Outpatient (CLI) | payer MEDICAID, SELFPAY ==
[2020-07-04 16:28] LABS: HPV Reflexed? NOT INDICATED
[2020-07-05 03:06] LABS: Chlamydia By Nucleic Acid AMP Negative (Negative)
[2020-07-05 14:09] LABS: Gonococcus By Nucleic Acid AMP Negative (Negative)
== END | disposition home or self-care (01) ==
LOC: LABSPEC 07-02 10:30
PROVIDERS: Visit Provider Obstetrics & Gynecology
DX: Z12.4 Encounter for screening for malignant neoplasm of cervix (principal); Z11.3 Encounter for screening for infections with a predominantly sexual mode of transmission
CPT/HCPCS: 87491; 87591; 88175; G0145

== ENCOUNTER 2021-10-16 15:00 | Outpatient (CLI) | payer MEDICAID, SELFPAY ==
[2021-10-16 16:22] LABS: Absolute Lymphocyte Count 1.81 X10^3/uL (0.83-4.51); Absolute Neutrophil Count 4.6 X10^3/uL (2.0-7.7); Basophil# 0.03 X10^3/uL; Basophil% 0.4 % (0-1); Eosinophil# 0.16 X10^3/uL; Eosinophils% 2.3 % (0-5); Hemoglobin 12.5 g/dL (12.0-15.0); Lymphocyte # 1.81 X10^3/ul (0.83-4.51); Lymphocyte % 25.5 % (19-41); Mean Corp Hgb Conc 34.7 g/dL (32-36); Mean Corpuscular Hgb 30.1 pg (27.0-32.0); Mean Corpuscular Volume 86.7 fL (81-99); Mean Platelet Vol. 10.7 fl (6.2-12.0); Monocyte# 0.45 X10^3/uL; Monocyte% 6.3 % (0-10); NRBC Flagged by Analyzer 0 % (0-5); Neutrophil # 4.64 X10^3/uL (2.7-7.7); Neutrophil % 65.2 % (47-70); Platelet Count 174 K/mm3 (150-450); RBC Distribution Width CV 12.8 % (11.6-14.6); RBC Distribution Width SD 40.7 fl (35.1-43.9); Red Blood Count 4.15 M/mm3 (4.2-5.4); White Blood Count 7.1 K/mm3 (4.4-11.0)
[2021-10-19 04:07] LABS: Chlamydia By Nucleic Acid AMP Negative (Negative)
[2021-10-19 09:20] LABS: HIV - WCH Non-Reactive (Nonreactive); Hepatitis B Surface Antigen Non-Reactive (Nonreactive); Hepatitis C Antibody Non-Reactive (Nonreactive); Rubella IgG Reactive (Nonreactive); Syphilis Antibodies Non-reactive
[2021-10-19 11:23] LABS: Gonococcus By Nucleic Acid AMP Negative (Negative)
== END 2021-10-16 23:59 | disposition short-term general hospital (02) ==
LOC: WOBLAB 15:01
PROVIDERS: Visit Provider Obstetrics & Gynecology
DX: Z34.81 Encounter for supervision of other normal pregnancy, first trimester (principal); Z11.3 Encounter for screening for infections with a predominantly sexual mode of transmission
CPT/HCPCS: 85025; 86703; 86762; 86780; 86803; 87086; 87088; 87340; 87491; 87591

== ENCOUNTER → 2022-02-15 | Outpatient (CLI) | payer MEDICAID, SELFPAY ==
[2022-02-15 17:11] LABS: Hematocrit 30.2 % (37-47); Hemoglobin 10.4 g/dL (12.0-15.0); Mean Corp Hgb Conc 34.4 g/dL (32-36); Mean Corpuscular Volume 92.9 fL (81-99); Mean Platelet Vol. 10.7 fl (6.2-12.0); Platelet Count 148 K/mm3 (150-450); RBC Distribution Width CV 12.6 % (11.6-14.6); Red Blood Count 3.25 M/mm3 (4.2-5.4); White Blood Count 9.1 K/mm3 (4.4-11.0)
[2022-02-15 17:33] LABS: Glucose Challenge Gest 1H 50g 97 mg/dL (70-140)
== END | disposition home or self-care (01) ==
PROVIDERS: Visit Provider Obstetrics & Gynecology
DX: Z34.82 Encounter for supervision of other normal pregnancy, second trimester (principal)
CPT/HCPCS: 36415; 82950; 85027

== ENCOUNTER 2022-04-15 14:25 | Inpatient (IN) | payer MEDICAID, SELFPAY ==
[2022-04-15] VITALS (18 sets, daily range): BP systolic 124–150; BP diastolic 71–91; PULSE 75–96; TEMP 36–37.3; O2SAT 99–100; BMI 27.8
[2022-04-15] MEDS: Lactated Ringers 1,000 ML 50 ML IV (14:20)
[2022-04-15] MEDS: Betamethasone/Betamethasone 30 MG/5 ML Vial 12 MG IM (14:35)
[2022-04-15 14:41] LABS: Absolute Neutrophil Count 6.4 X10^3/uL (2.0-7.7); Basophil# 0.02 X10^3/uL; Basophil% 0.2 % (0-1); Eosinophil# 0.07 X10^3/uL; Eosinophils% 0.8 % (0-5); Hematocrit 30.4 % (37-47); Hemoglobin 10.5 g/dL (12.0-15.0); Lymphocyte % 19.4 % (19-41); Mean Corp Hgb Conc 34.5 g/dL (32-36); Mean Corpuscular Hgb 31.1 pg (27.0-32.0); Mean Corpuscular Volume 89.9 fL (81-99); Mean Platelet Vol. 10.6 fl (6.2-12.0); Monocyte# 0.53 X10^3/uL; NRBC Flagged by Analyzer 0 % (0-5); Neutrophil # 6.37 X10^3/uL (2.7-7.7); Neutrophil % 72.7 % (47-70); Platelet Count 132 K/mm3 (150-450); RBC Distribution Width CV 13.2 % (11.6-14.6); RBC Distribution Width SD 42.3 fl (35.1-43.9); Red Blood Count 3.38 M/mm3 (4.2-5.4); White Blood Count 8.8 K/mm3 (4.4-11.0)
--- NOTE | 2022-04-15 14:54 | PCM.HP.BLA ---
History and Physical Date of Admission: 04/15/22 Chief complaint: Leakage of fluid History present illness: 26-year-old G4, P3 at 35 weeks and 0 days with ROSA: 05/20/2022 by LMP arrives with leakage of blood-tinged fluid this afternoon. Denies headache, visual changes, chest pain, shortness of breath, nausea vomit, right upper quadrant pain. Patient dates good movement. Obstetric history: G1: 39-week male 03/2017 G2: 37-week male 07/2018 G3: 37-week female 05/2019 G4: Current Medications: None Past medical history: None Past surgical history: [place] teeth extraction Allergies: No known drug allergies Social history: 1 pack/day smoker, denies alcohol or drug use Family history: Denies history DVT or PE Review of systems: Besides above pertinent positives a full review of systems was performed and found to be negative Physical exam: Blood pressure 124/77 pulse 88 temp 98.4 Fahrenheit General: Normal-appearing no acute distress none HEENT: Normocephalic/atraumatic no cervical adenopathy Cardiac/respiratory: No successor muscles, nonlabored breathing Abdomen: Soft, nontender, gravid Pelvic exam: Positive pooling, positive ferning. Cervical exam 4/70/-2 Extremities: No peripheral edema normal peripheral pulses Psych: Normal affect normal demeanor nonpressured speech Bedside ultrasound: Cephalic Labs: White blood cell count 8.8 hemoglobin 10.5 hematocrit 30.4% platelets 132 Assessment plan: 26-year-old at 35 weeks and 0 days with P PROM. Educated patient on findings. Greater than 34 weeks for induction of labor today. Celestone given. Unknown GBS, will treat with penicillin. Notify range management specialist.
[2022-04-15] MEDS: Oxytocin 30 units/NS 500 ml 30 UNITS/500 ML IV.SOLN IV (15:40)
--- NOTE | 2022-04-15 19:12 | PCM.PN.OB ---
Subjective Subjective Feeling increased pressure with contractions Objective Data Objective Data Vital Signs: Vital Signs Temp Pulse BP Pulse Ox 99.1 F 86 134/75 H 99 04/15/22 17:32 04/15/22 18:52 04/15/22 18:52 04/15/22 15:17 Weight: 138 lb Body Mass Index (BMI) 27.8 Intake & Output: Intake and Output for Last 24 Hours 04/13/22 04/14/22 04/15/22 23:59 23:59 23:59 Intake Total 107 / 107 Balance 107 / 107 Lab / Micro Data Result Diagrams: 04/15/22 14:20 Labs: Laboratory Results - last 24 hr 04/15/22 14:20: WBC 8.8, RBC 3.38 L, Hgb 10.5 L, Hct 30.4 L, MCV 89.9, MCH 31.1, MCHC 34.5, RDW Std Deviation 42.3, RDW Coeff of Neel 13.2, Plt Count 132 L, MPV 10.6, Immature Gran % (Auto) 0.900, Neut % (Auto) 72.7 H, Lymph % (Auto) 19.4, [place] % (Auto) 6.0, Eos % (Auto) 0.8, Baso % (Auto) 0.2, Absolute Neuts (auto) 6.4, Absolute Lymphs (auto) 1.70, Nucleated RBC % 0 04/15/22 14:20: Blood Type O POSITIVE, Antibody Screen NEGATIVE Micro: Microbiology 04/15/22 14:30 Nasal Secretion SARS-CoV-2 Antigen (Rapid) - Final Physical Exam Const alert, oriented x3, no apparent distress, average body habitus, healthy appearing and well nourished HEENT normocephalic Eyes PERRL Neck full ROM Resp normal respiratory effort, no retractions and no use of accessory muscles GI GI Narrative: Soft, nontender, gravid Narrative: Cervical exam: /-2. Leaking clear fluid, AROM for bag Extremity normal to inspection, full ROM and no clubbing, cyanosis or edema Psych mental status grossly normal, affect normal, speech normal and activity/motor behavior normal Assessment & Plan (1) : PLAN: Patient seen and examined. Leaking clear fluid still with P PROM. But for bag noted, ruptured. Continue titrate Pitocin
[2022-04-15] MEDS: Penicillin G 3,000,000 Units 50 ML 100 UNITS IV (19:54)
[2022-04-15] MEDS: Lactated Ringers 1,000 ML 200 ML IV (19:55)
[2022-04-15] MEDS: 0.9% Saline Lock 10 ML Syringe IV (19:56)
[2022-04-15] MEDS: Ondansetron 4 MG/2 ML Vial IV (19:56)
[2022-04-15] MEDS: Oxytocin 30 units/NS 500 ml 30 UNITS/500 ML IV.SOLN 334 UNITS IV (20:15)
[2022-04-15] MEDS: Carboprost Tromethamine 250 MCG/ML Ampul IM (20:20)
--- NOTE | 2022-04-15 20:28 | OP.PCM_ITS ---
Vaginal Delivery Findings Description of Procedure: Normal spontaneous vaginal delivery of a viable male , vertex AVELINA. Head and shoulders delivered with ease. Cord cut clamped. Baby handed off to patient. Placenta delivered via cord traction and fundal massage. No lacerations noted. Energy Efficiency Finance Manager present for delivery. Apgars 6/8. EBL 300 cc
[2022-04-15] MEDS: Ibuprofen 600 MG Tablet PO (21:33)
[2022-04-16] VITALS (7 sets, daily range): BP systolic 112–133; BP diastolic 67–80; PULSE 74–89; RESP 16–18; TEMP 36.4–36.9
--- NOTE | 2022-04-16 07:26 | PN.OBGYN_ITS ---
Subjective Subjective No overnight complaints. Pain well controlled. Objective Data Objective Data Vital Signs: Vital Signs Temp Pulse Resp BP Pulse Ox O2 Del Method 97.5 F L 76 18 113/73 100 Room Air 04/16/22 00:07 04/16/22 00:07 04/16/22 03:27 04/16/22 03:27 04/15/22 19:17 04/16/22 03:27 Oxygen Delivery Method Room Air Weight: 138 lb Body Mass Index (BMI) 27.8 Intake & Output: Intake and Output for Last 24 Hours 04/14/22 04/15/22 04/16/22 23:59 23:59 23:59 Intake Total 1018.51 / 1018.51 Balance 1018.51 / 1018.51 Lab / Micro Data Result Diagrams: 04/15/22 14:20 Labs: Laboratory Results - last 24 hr 04/15/22 14:20: WBC 8.8, RBC 3.38 L, Hgb 10.5 L, Hct 30.4 L, MCV 89.9, MCH 31.1, MCHC 34.5, RDW Std Deviation 42.3, RDW Coeff of Neel 13.2, Plt Count 132 L, MPV 10.6, Immature Gran % (Auto) 0.900, Neut % (Auto) 72.7 H, Lymph % (Auto) 19.4, [place] % (Auto) 6.0, Eos % (Auto) 0.8, Baso % (Auto) 0.2, Absolute Neuts (auto) 6.4, Absolute Lymphs (auto) 1.70, Nucleated RBC % 0 04/15/22 14:20: Blood Type O POSITIVE, Antibody Screen NEGATIVE Micro: Microbiology 04/15/22 14:30 Nasal Secretion SARS-CoV-2 Antigen (Rapid) - Final Physical Exam Const alert, oriented x3, no apparent distress, average body habitus, healthy appearing and well nourished HEENT normocephalic Eyes PERRL Neck full ROM Resp normal respiratory effort, no retractions and no use of accessory muscles GI GI Narrative: Soft, nontender, uterus firm and below umbilicus Extremity normal to inspection, full ROM and no clubbing, cyanosis or edema Neuro moves all extremities and no focal motor deficits Psych mental status grossly normal, affect normal, speech normal and activity/motor behavior normal Assessment & Plan (1) (spontaneous vaginal delivery): PLAN: day 1 status post 35-week P PROM vaginal delivery. Formula feeding. Pain well controlled. Likely home tomorrow
--- NOTE | 2022-04-16 08:43 | NURSING ---
pt complain of hands and feet feeling tingly. like they are falling asleep pt has history of carpel tunnel syndrome in hands. pt has b/l pedal swelling. left foot worse than right foot. pt states left foot tingling is worse than right foot. educated patient that this feeling may be from extra fluid and swelling and should resolve. will continue to monitor symptoms. encouraged patient to let this nurse know if symptoms worsen
--- NOTE | 2022-04-16 13:14 | NURSING ---
pt in room eating lunch. pt 3 other children are in the room. asked pt when her significant other would be returning and that visiting hours ended at 11:00. She stated that she knew that but that it was just the two. pt stated that her significant other would be returning soon. This nurse noted that patient was the feeding children her lunch. Spoke with Linus and Jose L.
--- NOTE | 2022-04-16 21:02 | NURSING ---
attempted to do 2000 vitals on pt when I went into room pt was outside with family, will try to do vitals again at 2100.
--- NOTE | 2022-04-17 01:18 | NURSING ---
0035 Rounded on Mother and she was not in the room. Infants father was with , mother was outside smoking.
[2022-04-17 02:20] VITALS: BP 116/67; PULSE 74; RESP 15; TEMP 36.2
[2022-04-17 08:05] VITALS: BP 118/75; PULSE 66; RESP 16; TEMP 36.2
--- NOTE | 2022-04-17 11:01 | PCM.DC.BLA ---
Discharge Summary Date of Admission: 04/15/22 Date of Discharge: 04/17/22 Summary: Patient arrived on 04/15/2022 with leakage of fluid and vaginal bleeding. Patient diagnosed with P PROM. Celestone given. Patient induced and subsequently delivered vaginally on 04/15/2022. Routine recovery and discharged home on 04/17/2022 Meaningful Use Info Meaningful Use Diagnoses (Choose all that apply): None applicable Discharge Plan Admission Admit Date/Time: 04/15/22 14:25 Primary Reason for Your Visit: P PROM Attending Provider: Morro Hunt Primary Care Provider: Care Physician,Telma Primary Instructions Additional Instructions / Restrictions: Weightbearing as tolerated, regular diet, okay to shower, no intercourse for 4 to 6 weeks. Call if chest pain, shortness of breath, increased vaginal bleeding. Follow-up 4 to 6 weeks Discharge Orders/Prescriptions Referrals / Follow Up: Care Physician,No Primary [Primary Care Provider] - Disposition Disposition (needs filled in before D/C Order can be placed): Home, Self Care
--- NOTE | 2022-04-17 11:03 | PN.OBGYN_ITS ---
Subjective Subjective No overnight complaints Objective Data Objective Data Vital Signs: Vital Signs Temp Pulse Resp BP Pulse Ox O2 Del Method 97.1 F L 66 16 118/75 100 Room Air 04/17/22 08:05 04/17/22 08:05 04/17/22 08:05 04/17/22 08:05 04/15/22 19:17 04/17/22 02:20 Oxygen Delivery Method Room Air Weight: 138 lb Body Mass Index (BMI) 27.8 Intake & Output: Intake and Output for Last 24 Hours 04/15/22 04/16/22 04/17/22 23:59 23:59 23:59 Intake Total 1018.51 / 1018.51 Balance 1018.51 / 1018.51 Lab / Micro Data Result Diagrams: 04/15/22 14:20 Micro: Microbiology 04/15/22 14:30 Nasal Secretion SARS-CoV-2 Antigen (Rapid) - Final Physical Exam Const alert, oriented x3, no apparent distress, average body habitus, healthy appearing and well nourished HEENT normocephalic Eyes PERRL Neck full ROM Resp normal respiratory effort, no retractions and no use of accessory muscles GI GI Narrative: Soft, nontender, uterus firm and below umbilicus Extremity normal to inspection, full ROM and no clubbing, cyanosis or edema Neuro moves all extremities, no focal motor deficits and no sensory deficits noted Psych mental status grossly normal, affect normal, speech normal and activity/motor behavior normal Assessment & Plan (1) : PLAN: day 2 status post spontaneous vaginal delivery. Okay to discharge home today if okay with superintendent pipelines
[2022-04-17 14:23] VITALS: RESP 16; TEMP 36.7
== END 2022-04-17 14:48 | disposition home or self-care (01) | DRG 560 ==
LOC: WPOUT 14:31 → WP 14:31
PROVIDERS: Admitting Provider Obstetrics & Gynecology; Referring Provider Obstetrics & Gynecology; Visit Provider Obstetrics & Gynecology
DX: O42.913 Preterm premature rupture of membranes, unspecified as to length of time between rupture and onset of labor, third trimester (principal); Z37.0 Single live birth; F17.200 Nicotine dependence, unspecified, uncomplicated; O99.334 Smoking (tobacco) complicating childbirth; Z3A.35 35 weeks gestation of pregnancy
CPT/HCPCS: 59025; 59050; 76815; 85025; 86850; 86900; 86901; 87081; 87426; 99218; J7120; A4216; G0378; J0702; J2405

== ENCOUNTER → 2022-10-14 | Outpatient (CLI) | payer MEDICAID, SELFPAY ==
[2022-10-14 12:49] LABS: Absolute Lymphocyte Count 1.82 X10^3/uL (0.83-4.51); Absolute Neutrophil Count 5.9 X10^3/uL (2.0-7.7); Basophil# 0.06 X10^3/uL; Basophil% 0.7 % (0-1); Eosinophil# 0.16 X10^3/uL; Eosinophils% 1.9 % (0-5); Hematocrit 35.8 % (37-47); Hemoglobin 12.1 g/dL (12.0-15.0); Lymphocyte # 1.82 X10^3/ul (0.83-4.51); Lymphocyte % 21.7 % (19-41); Mean Corp Hgb Conc 33.8 g/dL (32-36); Mean Corpuscular Volume 88.8 fL (81-99); Mean Platelet Vol. 10.6 fl (6.2-12.0); Monocyte# 0.47 X10^3/uL; Monocyte% 5.6 % (0-10); NRBC Flagged by Analyzer 0 % (0-5); Neutrophil # 5.85 X10^3/uL (2.7-7.7); Neutrophil % 69.7 % (47-70); Platelet Count 194 K/mm3 (150-450); RBC Distribution Width CV 13.2 % (11.6-14.6); RBC Distribution Width SD 43.3 fl (35.1-43.9); Red Blood Count 4.03 M/mm3 (4.2-5.4); White Blood Count 8.4 K/mm3 (4.4-11.0)
[2022-10-14 14:12] LABS: HIV - WCH Non-Reactive (Nonreactive); Hepatitis B Surface Antigen Non-Reactive (Nonreactive); Hepatitis C Antibody Non-Reactive (Nonreactive); Rubella IgG Reactive (Nonreactive); Syphilis Antibodies Non-reactive
[2022-10-16 08:51] LABS: V-Zoster IgG (Immunity) 791 index (Immune >165)
[2022-10-20 22:21] LABS: HPV Reflexed? NOT INDICATED
== END | disposition home or self-care (01) ==
PROVIDERS: Visit Provider Obstetrics & Gynecology
DX: Z34.81 Encounter for supervision of other normal pregnancy, first trimester (principal); Z12.4 Encounter for screening for malignant neoplasm of cervix
CPT/HCPCS: 36415; 85025; 86703; 86762; 86780; 86787; 86803; 87086; 87340; 88175; G0145

== ENCOUNTER → 2023-02-03 | Outpatient (CLI) | payer MEDICAID, SELFPAY ==
[2023-02-03 11:54] LABS: Absolute Lymphocyte Count 1.36 X10^3/uL (0.83-4.51); Basophil# 0.03 X10^3/uL; Basophil% 0.3 % (0-1); Eosinophil# 0.13 X10^3/uL; Eosinophils% 1.4 % (0-5); Hematocrit 30.9 % (37-47); Hemoglobin 10.4 g/dL (12.0-15.0); Lymphocyte # 1.36 X10^3/ul (0.83-4.51); Lymphocyte % 14.8 % (19-41); Mean Corp Hgb Conc 33.7 g/dL (32-36); Mean Corpuscular Hgb 31.7 pg (27.0-32.0); Mean Corpuscular Volume 94.2 fL (81-99); Mean Platelet Vol. 9.9 fl (6.2-12.0); Monocyte# 0.57 X10^3/uL; Monocyte% 6.2 % (0-10); NRBC Flagged by Analyzer 0 % (0-5); Neutrophil # 7.04 X10^3/uL (2.7-7.7); Neutrophil % 76.8 % (47-70); Platelet Count 187 K/mm3 (150-450); RBC Distribution Width CV 12.7 % (11.6-14.6); RBC Distribution Width SD 43.9 fl (35.1-43.9); Red Blood Count 3.28 M/mm3 (4.2-5.4); White Blood Count 9.2 K/mm3 (4.4-11.0)
[2023-02-03 13:09] LABS: Glucose Challenge Gest 1H 50g 82 mg/dL (70-140)
[2023-02-03 13:29] LABS: Syphilis Antibodies Non-reactive
== END | disposition home or self-care (01) ==
LOC: LABSPEC 11:13
PROVIDERS: Visit Provider Obstetrics & Gynecology
DX: Z34.82 Encounter for supervision of other normal pregnancy, second trimester (principal)
CPT/HCPCS: 36415; 82950; 85025; 86780